=== PATIENT | male | born 1935 | race Caucasian/White ===

== ENCOUNTER 2019-01-26 08:44 | Inpatient (IN) ==
[2019-01-26] MEDS ORDERED: MAGNESIUM SULF RIDER 4 GM in PREMIX 1 EACH IV PRN (09:15)
[2019-01-26] MEDS ORDERED: MAGNESIUM SULF RIDER 2 GM in PREMIX 1 EACH IV PRN (09:15)
[2019-01-26] MEDS ORDERED: SODIUM CHLORIDE 0.45% 1,000 ML IV SCH (09:30)
[2019-01-26 11:50] LABS: Basophils % 0.2 % (0.0-0.8); Eosinophils # 0.2 10*3/uL (0.0-0.87); Eosinophils % 2.2 % (0.00-10.9); Hematocrit 39.2 VOL% (42.0-52.0); Hemoglobin 12.5 GM/DL (14.0-18.0); Immature Granulocytes % 0.3 %; Immature Granulocytes Absolute 0.03 #; Lymphocytes # 1.1 10*3/uL (1.4-4.0); Mean Corpuscular HGB Conc 31.9 GM/DL (32-36); Mean Corpuscular Volume 95.4 FL (87-102); Mean Platelet Volume 10.1 FL (9.6-12.0); Monocytes % 10.1 % (1.7-12.7); Neutrophils % 74.2 % (38.7-73.9); Platelet Count 147 T/CUMM (130-400); Red Blood Count 4.11 MC/CUMM (3.8-5.5); Red Cell Distribution Width 13.3 % (9.3-17.3); White Blood Count 8.7 T/CUMM (4-12)
[2019-01-26] MEDS ORDERED: NITROGLYCERIN SL 0.4 MG TABLET SL PRN (12:05)
[2019-01-26] MEDS ORDERED: CHOLECALCIFEROL 1,000 UNIT TABLET PO SCH (12:15)
[2019-01-26 12:17] LABS: Albumin 3.1 G/DL (3.4-5.0); Bilirubin,Total 0.8 MG/DL (0.2-1.0); Calcium 9.3 MG/DL (8.5-10.1); Osmolality,Calculated 288.7 MOS/KG (273-304); Total Protein 6.7 G/DL (6.4-8.3)
[2019-01-26] MEDS ORDERED: guaiFENesin/DM ER 600-30 MG TABLET PO PRN (12:18)
[2019-01-26] MEDS ORDERED: ONDANSETRON 4 MG/2 ML VIAL IV PRN (12:18)
[2019-01-26] MEDS ORDERED: diphenhydrAMINE CAP 25 MG CAPSULE PO PRN (12:18)
[2019-01-26] MEDS ORDERED: ACETAMINOPHEN 325 MG TABLET PO PRN (12:18)
[2019-01-26] MEDS ORDERED: ZALEPLON 5 MG CAPSULE PO PRN (12:18)
[2019-01-26] MEDS ORDERED: MORPHINE 4 MG/1 ML VIAL IV PRN (12:18)
[2019-01-26] MEDS ORDERED: POTASSIUM CHLORIDE 20 MEQ TABLET PO PRN (12:18)
[2019-01-26 12:20] LABS: Troponin I < 0.015 NG/ML (0.00-0.045)
[2019-01-26] MEDS ORDERED: ALUMINUM/MAGNES/SIMETH MAX STR 30 ML UDCUP PO PRN (12:21)
[2019-01-26] MEDS ORDERED: CLOPIDOGREL 75 MG TABLET PO SCH (12:30)
[2019-01-26] MEDS ORDERED: carvediloL 12.5 MG TABLET PO SCH (12:30)
[2019-01-26] MEDS ORDERED: LEVOFLOXACIN 500 MG TABLET PO SCH (12:30)
[2019-01-26] MEDS ORDERED: ISOSORBIDE MONONITRATE 30 MG TABLET PO SCH (12:30)
[2019-01-26] MEDS ORDERED: ROSUVASTATIN 10 MG TABLET PO SCH (12:30)
[2019-01-26] MEDS ORDERED: FENOFIBRATE 145 MG TABLET PO SCH (12:30)
[2019-01-26] MEDS ORDERED: TAMSULOSIN 0.4 MG CAPSULE PO SCH (12:30)
[2019-01-26] MEDS ORDERED: POTASSIUM CHLORIDE 20 MEQ TABLET PO SCH (12:30)
[2019-01-26] MEDS ORDERED: ALLOPURINOL 100 MG TABLET PO SCH (12:30)
[2019-01-26 13:16] LABS: Troponin I < 0.015 NG/ML (0.00-0.045)
[2019-01-26 14:02] LABS: Apearance,Urine CLEAR (Clear); Bacteria,Urine Occasional /HPF (Few); Bilirubin,Urine Negative (Negative); Blood, Urine Moderate mg/dL (Negative); Glucose,Urine (UA) 50 mg/dL (Negative); Hyaline Casts,Urine 1 /LPF (0-3); Ketones,Urine Negative (Negative); Mucus,Urine Occasional /LPF (Occasional); Nitrite,Urine Negative (Negative); Protein,Urine Negative; RBC,Urine 69 /HPF (0-4); Urine Color Yellow (Yellow); Urine Specific Gravity 1.014 (1.001-1.035); Urine Urobilinogen < 2.0 EU/DL (0.2-1.0); WBC,Urine 7 /HPF (0-6)
[2019-01-26] MEDS: BENZONATATE 100 MG CAPSULE PO PRN ×2 (14:30→21:24)
[2019-01-26 16:44] LABS: Troponin I < 0.015 NG/ML (0.00-0.045)
[2019-01-26] MEDS: INSULIN LISPRO 100 UNIT/ML SUBCUT SCH ×2 (17:25→21:24)
[2019-01-26] MEDS: ASPIRIN EC 81 MG TABLET PO SCH (20:40)
[2019-01-26] MEDS: MULTIVITAMIN (CENTRUM) TABLET PO SCH (20:41)
[2019-01-26] MEDS: OMEGA 3 ACID ETHYL ESTERS 1 GM CAPSULE PO SCH (20:41)
[2019-01-26] MEDS: FLUTICASONE 50 MCG NASAL SPRAY 16 GM BOTTLE BOTH NARES SCH (20:41)
[2019-01-26] MEDS: ENOXAPARIN 40 MG/0.4 ML SYRINGE SUBCUT SCH (21:23)
[2019-01-26] MEDS: carvediloL 6.25 MG TABLET PO SCH (21:24)
[2019-01-26] MEDS: ALLOPURINOL 100 MG TABLET PO SCH (21:24)
[2019-01-27 05:34] LABS: Basophils % 0.2 % (0.0-0.8); Eosinophils # 0.4 10*3/uL (0.0-0.87); Eosinophils % 5.3 % (0.00-10.9); Hematocrit 37.1 VOL% (42.0-52.0); Hemoglobin 11.7 GM/DL (14.0-18.0); Immature Granulocytes % 0.5 %; Immature Granulocytes Absolute 0.03 #; Lymphocytes # 1.2 10*3/uL (1.4-4.0); Lymphocytes % 17.7 % (21.2-54.2); Mean Corpuscular HGB Conc 31.5 GM/DL (32-36); Mean Corpuscular Volume 94.9 FL (87-102); Mean Platelet Volume 10.7 FL (9.6-12.0); Monocytes % 12.5 % (1.7-12.7); Neutrophils % 63.8 % (38.7-73.9); Platelet Count 138 T/CUMM (130-400); Red Blood Count 3.91 MC/CUMM (3.8-5.5); Red Cell Distribution Width 13.4 % (9.3-17.3); White Blood Count 6.6 T/CUMM (4-12)
[2019-01-27 05:53] LABS: Calcium 9.6 MG/DL (8.5-10.1); Osmolality,Calculated 281.1 MOS/KG (273-304)
[2019-01-27] MEDS: LEVOTHYROXINE 100 MCG TABLET PO SCH (06:22)
[2019-01-27] MEDS: BENZONATATE 100 MG CAPSULE PO PRN ×3 (06:22→21:05)
[2019-01-27] MEDS: LEVALBUTEROL 0.63 MG/3 ML NEB RESP TX SCH ×3 (09:17→20:04)
[2019-01-27] MEDS: INSULIN LISPRO 100 UNIT/ML SUBCUT SCH ×4 (09:32→20:51)
[2019-01-27] MEDS: SODIUM CHLORIDE 0.45% 500 ML IV SCH ×2 (09:33→13:36)
[2019-01-27] MEDS: TAMSULOSIN 0.4 MG CAPSULE PO SCH (09:35)
[2019-01-27] MEDS: carvediloL 6.25 MG TABLET PO SCH ×2 (09:35→20:49)
[2019-01-27] MEDS: ISOSORBIDE MONONITRATE 30 MG TABLET PO SCH (09:35)
[2019-01-27] MEDS: POTASSIUM CHLORIDE 20 MEQ TABLET PO SCH (09:35)
[2019-01-27] MEDS: CLOPIDOGREL 75 MG TABLET PO SCH (09:36)
[2019-01-27] MEDS: FENOFIBRATE 145 MG TABLET PO SCH (09:36)
[2019-01-27] MEDS: CHOLECALCIFEROL 1,000 UNIT TABLET PO SCH (09:36)
[2019-01-27] MEDS: ROSUVASTATIN 10 MG TABLET PO SCH (09:37)
[2019-01-27] MEDS: ALLOPURINOL 100 MG TABLET PO SCH ×2 (09:37→20:49)
[2019-01-27] MEDS: ASPIRIN EC 81 MG TABLET PO SCH (09:38)
[2019-01-27] MEDS: OMEGA 3 ACID ETHYL ESTERS 1 GM CAPSULE PO SCH (09:38)
[2019-01-27] MEDS: MULTIVITAMIN (CENTRUM) TABLET PO SCH (09:38)
[2019-01-27] MEDS: FLUTICASONE 50 MCG NASAL SPRAY 16 GM BOTTLE BOTH NARES SCH (09:38)
[2019-01-27] MEDS: AZITHROMYCIN 250 MG TABLET PO SCH (09:48)
[2019-01-27] MEDS: PANTOPRAZOLE 40 MG TABLET PO SCH (09:48)
[2019-01-27] MEDS ORDERED: SODIUM CHLORIDE 0.45% 1,000 ML IV SCH (16:30)
[2019-01-27] MEDS: ENOXAPARIN 40 MG/0.4 ML SYRINGE SUBCUT SCH (20:49)
[2019-01-28] MEDS: LEVALBUTEROL 0.63 MG/3 ML NEB RESP TX SCH ×4 (02:37→18:40)
[2019-01-28 07:53] LABS: Calcium 9.6 MG/DL (8.5-10.1)
[2019-01-28 08:20] LABS: Basophils % 0.3 % (0.0-0.8); Eosinophils # 0.3 10*3/uL (0.0-0.87); Eosinophils % 4.3 % (0.00-10.9); Hematocrit 38.1 VOL% (42.0-52.0); Hemoglobin 12.1 GM/DL (14.0-18.0); Immature Granulocytes % 0.4 %; Immature Granulocytes Absolute 0.03 #; Lymphocytes # 1.1 10*3/uL (1.4-4.0); Lymphocytes % 15.2 % (21.2-54.2); Mean Corpuscular HGB Conc 31.8 GM/DL (32-36); Mean Corpuscular Volume 94.5 FL (87-102); Mean Platelet Volume 9.8 FL (9.6-12.0); Monocytes % 11.5 % (1.7-12.7); Neutrophils % 68.3 % (38.7-73.9); Platelet Count 169 T/CUMM (130-400); Red Blood Count 4.03 MC/CUMM (3.8-5.5); White Blood Count 7.5 T/CUMM (4-12)
[2019-01-28] MEDS: MULTIVITAMIN (CENTRUM) TABLET PO SCH (09:16)
[2019-01-28] MEDS: OMEGA 3 ACID ETHYL ESTERS 1 GM CAPSULE PO SCH (09:16)
[2019-01-28] MEDS: ASPIRIN EC 81 MG TABLET PO SCH (09:16)
[2019-01-28] MEDS: FENOFIBRATE 145 MG TABLET PO SCH (09:17)
[2019-01-28] MEDS: AZITHROMYCIN 250 MG TABLET PO SCH (09:17)
[2019-01-28] MEDS: DOCUSATE SODIUM 100 MG CAPSULE PO PRN (09:17)
[2019-01-28] MEDS: POTASSIUM CHLORIDE 20 MEQ TABLET PO SCH (09:18)
[2019-01-28] MEDS: TAMSULOSIN 0.4 MG CAPSULE PO SCH (09:18)
[2019-01-28] MEDS: ROSUVASTATIN 10 MG TABLET PO SCH (09:18)
[2019-01-28] MEDS: PANTOPRAZOLE 40 MG TABLET PO SCH (09:18)
[2019-01-28] MEDS: carvediloL 6.25 MG TABLET PO SCH ×2 (09:19→21:15)
[2019-01-28] MEDS: ALLOPURINOL 100 MG TABLET PO SCH ×2 (09:19→21:15)
[2019-01-28] MEDS: LEVOTHYROXINE 100 MCG TABLET PO SCH (09:19)
[2019-01-28] MEDS: BENZONATATE 100 MG CAPSULE PO PRN ×2 (09:20→17:36)
[2019-01-28] MEDS: CLOPIDOGREL 75 MG TABLET PO SCH (09:21)
[2019-01-28] MEDS: INSULIN LISPRO 100 UNIT/ML SUBCUT SCH ×4 (09:21→21:14)
[2019-01-28] MEDS: ISOSORBIDE MONONITRATE 30 MG TABLET PO SCH (09:21)
[2019-01-28] MEDS: CHOLECALCIFEROL 1,000 UNIT TABLET PO SCH (11:30)
[2019-01-28] MEDS: FLUTICASONE 50 MCG NASAL SPRAY 16 GM BOTTLE BOTH NARES SCH (11:31)
[2019-01-28] MEDS: guaiFENesin 200 MG/10 ML UDCUP PO PRN (15:00)
[2019-01-28] MEDS: ENOXAPARIN 40 MG/0.4 ML SYRINGE SUBCUT SCH (21:15)
[2019-01-29] MEDS: LEVALBUTEROL 0.63 MG/3 ML NEB RESP TX SCH ×4 (01:38→19:20)
[2019-01-29] MEDS: LEVOTHYROXINE 100 MCG TABLET PO SCH (05:55)
[2019-01-29 06:35] LABS: Basophils % 0.3 % (0.0-0.8); Eosinophils # 0.4 10*3/uL (0.0-0.87); Eosinophils % 5.9 % (0.00-10.9); Hematocrit 34.9 VOL% (42.0-52.0); Hemoglobin 11.3 GM/DL (14.0-18.0); Immature Granulocytes % 0.7 %; Immature Granulocytes Absolute 0.04 #; Lymphocytes % 15.9 % (21.2-54.2); Mean Corpuscular HGB Conc 32.4 GM/DL (32-36); Mean Corpuscular Volume 93.1 FL (87-102); Mean Platelet Volume 10.2 FL (9.6-12.0); Monocytes % 10.9 % (1.7-12.7); Neutrophils % 66.3 % (38.7-73.9); Platelet Count 172 T/CUMM (130-400); Red Blood Count 3.75 MC/CUMM (3.8-5.5); Red Cell Distribution Width 13.1 % (9.3-17.3)
[2019-01-29 06:55] LABS: Calcium 9.2 MG/DL (8.5-10.1); Osmolality,Calculated 277.2 MOS/KG (273-304)
[2019-01-29] MEDS: BENZONATATE 100 MG CAPSULE PO PRN ×2 (07:00→16:42)
[2019-01-29] MEDS: guaiFENesin 200 MG/10 ML UDCUP PO PRN ×2 (07:53→13:33)
[2019-01-29] MEDS: INSULIN LISPRO 100 UNIT/ML SUBCUT SCH ×5 (08:02→22:09)
[2019-01-29] MEDS: ASPIRIN EC 81 MG TABLET PO SCH (09:56)
[2019-01-29] MEDS: carvediloL 6.25 MG TABLET PO SCH ×2 (09:58→22:11)
[2019-01-29] MEDS: FUROSEMIDE 40 MG TABLET PO SCH (09:58)
[2019-01-29] MEDS: MULTIVITAMIN (CENTRUM) TABLET PO SCH (09:59)
[2019-01-29] MEDS: ROSUVASTATIN 10 MG TABLET PO SCH (10:00)
[2019-01-29] MEDS: POTASSIUM CHLORIDE 20 MEQ TABLET PO SCH (10:01)
[2019-01-29] MEDS: OMEGA 3 ACID ETHYL ESTERS 1 GM CAPSULE PO SCH (10:02)
[2019-01-29] MEDS: CHOLECALCIFEROL 1,000 UNIT TABLET PO SCH (10:04)
[2019-01-29] MEDS: TAMSULOSIN 0.4 MG CAPSULE PO SCH (10:04)
[2019-01-29] MEDS: FENOFIBRATE 145 MG TABLET PO SCH (10:05)
[2019-01-29] MEDS: ISOSORBIDE MONONITRATE 30 MG TABLET PO SCH (10:05)
[2019-01-29] MEDS: ALLOPURINOL 100 MG TABLET PO SCH ×2 (10:06→22:11)
[2019-01-29] MEDS: DOCUSATE SODIUM 100 MG CAPSULE PO PRN (10:07)
[2019-01-29] MEDS: CLOPIDOGREL 75 MG TABLET PO SCH (10:08)
[2019-01-29] MEDS: FLUTICASONE 50 MCG NASAL SPRAY 16 GM BOTTLE BOTH NARES SCH (10:08)
[2019-01-29] MEDS: PANTOPRAZOLE 40 MG TABLET PO SCH (10:08)
[2019-01-29] MEDS: AZITHROMYCIN 250 MG TABLET PO SCH (10:08)
[2019-01-29] MEDS: LISINOPRIL 5 MG TABLET PO SCH (10:13)
[2019-01-29] MEDS: ENOXAPARIN 40 MG/0.4 ML SYRINGE SUBCUT SCH (22:11)
[2019-01-30] MEDS: LEVALBUTEROL 0.63 MG/3 ML NEB RESP TX SCH ×4 (01:00→19:42)
[2019-01-30 02:19] LABS: Basophils % 0.2 % (0.0-0.8); Eosinophils # 0.4 10*3/uL (0.0-0.87); Eosinophils % 7.2 % (0.00-10.9); Hematocrit 35.3 VOL% (42.0-52.0); Hemoglobin 11.4 GM/DL (14.0-18.0); Immature Granulocytes % 1.3 %; Immature Granulocytes Absolute 0.07 #; Lymphocytes % 18.2 % (21.2-54.2); Mean Corpuscular HGB Conc 32.3 GM/DL (32-36); Mean Corpuscular Volume 93.6 FL (87-102); Mean Platelet Volume 9.4 FL (9.6-12.0); Neutrophils % 62.1 % (38.7-73.9); Platelet Count 178 T/CUMM (130-400); Red Blood Count 3.77 MC/CUMM (3.8-5.5); Red Cell Distribution Width 13.2 % (9.3-17.3); White Blood Count 5.6 T/CUMM (4-12)
[2019-01-30 02:41] LABS: Calcium 9.5 MG/DL (8.5-10.1)
[2019-01-30] MEDS: BENZONATATE 100 MG CAPSULE PO PRN ×2 (06:25→14:28)
[2019-01-30] MEDS: LEVOTHYROXINE 100 MCG TABLET PO SCH (06:25)
[2019-01-30] MEDS: carvediloL 6.25 MG TABLET PO SCH ×2 (09:18→21:49)
[2019-01-30] MEDS: CLOPIDOGREL 75 MG TABLET PO SCH (09:18)
[2019-01-30] MEDS: POTASSIUM CHLORIDE 20 MEQ TABLET PO SCH (09:19)
[2019-01-30] MEDS: FENOFIBRATE 145 MG TABLET PO SCH (09:19)
[2019-01-30] MEDS: CHOLECALCIFEROL 1,000 UNIT TABLET PO SCH (09:20)
[2019-01-30] MEDS: ISOSORBIDE MONONITRATE 30 MG TABLET PO SCH (09:20)
[2019-01-30] MEDS: ROSUVASTATIN 10 MG TABLET PO SCH (09:20)
[2019-01-30] MEDS: OMEGA 3 ACID ETHYL ESTERS 1 GM CAPSULE PO SCH (09:21)
[2019-01-30] MEDS: TAMSULOSIN 0.4 MG CAPSULE PO SCH (09:21)
[2019-01-30] MEDS: ALLOPURINOL 100 MG TABLET PO SCH ×2 (09:22→21:49)
[2019-01-30] MEDS: FUROSEMIDE 40 MG TABLET PO SCH (09:23)
[2019-01-30] MEDS: ASPIRIN EC 81 MG TABLET PO SCH (09:23)
[2019-01-30] MEDS: LISINOPRIL 5 MG TABLET PO SCH (09:24)
[2019-01-30] MEDS: PANTOPRAZOLE 40 MG TABLET PO SCH (09:24)
[2019-01-30] MEDS: AZITHROMYCIN 250 MG TABLET PO SCH (09:24)
[2019-01-30] MEDS: MULTIVITAMIN (CENTRUM) TABLET PO SCH (09:24)
[2019-01-30] MEDS: FLUTICASONE 50 MCG NASAL SPRAY 16 GM BOTTLE BOTH NARES SCH (10:21)
[2019-01-30] MEDS ORDERED: LACTULOSE 20 GM/30 ML UDCUP PO PRN (11:30)
[2019-01-30] MEDS: INSULIN LISPRO 100 UNIT/ML SUBCUT SCH ×4 (12:32→21:53)
[2019-01-30] MEDS: POLYETHYLENE GLYCOL POWDER 17 GM PACK PO SCH (19:10)
[2019-01-30] MEDS: ENOXAPARIN 40 MG/0.4 ML SYRINGE SUBCUT SCH (21:53)
[2019-01-31] MEDS: LEVALBUTEROL 0.63 MG/3 ML NEB RESP TX SCH ×4 (00:12→18:40)
[2019-01-31] MEDS: BENZONATATE 100 MG CAPSULE PO PRN (00:32)
[2019-01-31] MEDS: LEVOTHYROXINE 100 MCG TABLET PO SCH (06:40)
[2019-01-31] MEDS ORDERED: COSYNTROPIN 0.25 MG VIAL IM ONE (07:47)
[2019-01-31 09:02] LABS: Basophils % 0.6 % (0.0-0.8); Eosinophils # 0.4 10*3/uL (0.0-0.87); Eosinophils % 6.8 % (0.00-10.9); Hematocrit 37.5 VOL% (42.0-52.0); Hemoglobin 12.1 GM/DL (14.0-18.0); Immature Granulocytes % 2.1 %; Immature Granulocytes Absolute 0.13 #; Lymphocytes # 1.3 10*3/uL (1.4-4.0); Lymphocytes % 20.5 % (21.2-54.2); Mean Corpuscular HGB Conc 32.3 GM/DL (32-36); Mean Corpuscular Volume 93.8 FL (87-102); Mean Platelet Volume 9.9 FL (9.6-12.0); Monocytes % 8.9 % (1.7-12.7); Neutrophils % 61.1 % (38.7-73.9); Platelet Count 228 T/CUMM (130-400); Red Cell Distribution Width 13.2 % (9.3-17.3); White Blood Count 6.2 T/CUMM (4-12)
[2019-01-31 09:21] LABS: Calcium 9.7 MG/DL (8.5-10.1)
[2019-01-31] MEDS: ASPIRIN EC 81 MG TABLET PO SCH (09:28)
[2019-01-31] MEDS: INSULIN LISPRO 100 UNIT/ML SUBCUT SCH ×4 (09:28→22:00)
[2019-01-31] MEDS: ISOSORBIDE MONONITRATE 30 MG TABLET PO SCH (09:32)
[2019-01-31] MEDS: POLYETHYLENE GLYCOL POWDER 17 GM PACK PO SCH (09:32)
[2019-01-31] MEDS: POTASSIUM CHLORIDE 20 MEQ TABLET PO SCH (09:32)
[2019-01-31] MEDS: CLOPIDOGREL 75 MG TABLET PO SCH (09:32)
[2019-01-31] MEDS: MULTIVITAMIN (CENTRUM) TABLET PO SCH (09:32)
[2019-01-31] MEDS: FLUTICASONE 50 MCG NASAL SPRAY 16 GM BOTTLE BOTH NARES SCH (09:32)
[2019-01-31] MEDS: PANTOPRAZOLE 40 MG TABLET PO SCH (09:32)
[2019-01-31] MEDS: OMEGA 3 ACID ETHYL ESTERS 1 GM CAPSULE PO SCH (09:32)
[2019-01-31] MEDS: carvediloL 6.25 MG TABLET PO SCH ×2 (09:32→22:00)
[2019-01-31] MEDS: CHOLECALCIFEROL 1,000 UNIT TABLET PO SCH (09:33)
[2019-01-31] MEDS: FENOFIBRATE 145 MG TABLET PO SCH (09:33)
[2019-01-31] MEDS: AZITHROMYCIN 250 MG TABLET PO SCH (09:33)
[2019-01-31] MEDS: ALLOPURINOL 100 MG TABLET PO SCH ×2 (09:33→22:00)
[2019-01-31] MEDS: TAMSULOSIN 0.4 MG CAPSULE PO SCH ×2 (09:57→22:03)
[2019-01-31] MEDS ORDERED: POLYETHYLENE GLYCOL POWDER 17 GM PACK PO PRN (10:45)
[2019-01-31] MEDS ORDERED: SODIUM CHLORIDE 0.9% 1,000 ML IV SCH (11:00)
[2019-01-31] MEDS ORDERED: EXENATIDE SUBCUT SCH (14:00)
[2019-01-31] MEDS ORDERED: TAMSULOSIN 0.4 MG CAPSULE PO SCH (21:00)
[2019-01-31] MEDS ORDERED: ROSUVASTATIN 10 MG TABLET PO SCH (21:00)
[2019-01-31] MEDS: ENOXAPARIN 40 MG/0.4 ML SYRINGE SUBCUT SCH (22:02)
[2019-01-31] MEDS: ROSUVASTATIN 10 MG TABLET PO SCH (22:03)
[2019-02-01] MEDS: BENZONATATE 100 MG CAPSULE PO PRN (00:12)
[2019-02-01] MEDS: LEVALBUTEROL 0.63 MG/3 ML NEB RESP TX SCH ×2 (00:25→08:38)
[2019-02-01] MEDS: LEVOTHYROXINE 100 MCG TABLET PO SCH (06:44)
[2019-02-01] MEDS: MULTIVITAMIN (CENTRUM) TABLET PO SCH (08:28)
[2019-02-01] MEDS: INSULIN LISPRO 100 UNIT/ML SUBCUT SCH ×2 (08:28→12:16)
[2019-02-01] MEDS: ASPIRIN EC 81 MG TABLET PO SCH (08:29)
[2019-02-01] MEDS: AZITHROMYCIN 250 MG TABLET PO SCH (08:29)
[2019-02-01] MEDS: carvediloL 6.25 MG TABLET PO SCH (08:30)
[2019-02-01] MEDS: OMEGA 3 ACID ETHYL ESTERS 1 GM CAPSULE PO SCH (08:30)
[2019-02-01] MEDS: PANTOPRAZOLE 40 MG TABLET PO SCH (08:30)
[2019-02-01] MEDS: FENOFIBRATE 145 MG TABLET PO SCH (08:31)
[2019-02-01] MEDS: ISOSORBIDE MONONITRATE 30 MG TABLET PO SCH (08:31)
[2019-02-01] MEDS: CLOPIDOGREL 75 MG TABLET PO SCH (08:32)
[2019-02-01] MEDS: POTASSIUM CHLORIDE 20 MEQ TABLET PO SCH (08:32)
[2019-02-01] MEDS: CHOLECALCIFEROL 1,000 UNIT TABLET PO SCH (08:32)
[2019-02-01] MEDS: ALLOPURINOL 100 MG TABLET PO SCH (08:33)
[2019-02-01] MEDS: FLUTICASONE 50 MCG NASAL SPRAY 16 GM BOTTLE BOTH NARES SCH (08:34)
[2019-02-01] MEDS ORDERED: SODIUM CHLORIDE 0.9% 500 ML IV SCH (10:00)
[2019-02-01 11:54] VITALS: BP 120/84
[2019-02-01 13:05] LABS: Troponin I < 0.015 NG/ML (0.00-0.045)
== END 2019-02-01 15:18 | disposition home or self-care (01) | DRG 202 ==
LOC: N.CC 10:05 → N.TELEN 01-27 10:57
PROVIDERS: ADMIT Internal Medicine Cardiovascular Disease; ATTEND Internal Medicine Cardiovascular Disease

== ENCOUNTER 2020-02-27 11:19 | Inpatient (IN) ==
[2020-02-27 13:25] LABS: Basophils % 0.4 % (0.0-0.8); Eosinophils # 0.3 10*3/uL (0.0-0.87); Eosinophils % 3.7 % (0.00-10.9); Hematocrit 38.3 VOL% (42.0-52.0); Hemoglobin 12.6 GM/DL (14.0-18.0); Immature Granulocytes % 0.7 %; Immature Granulocytes Absolute 0.05 #; Lymphocytes # 1.3 10*3/uL (1.4-4.0); Lymphocytes % 18.4 % (21.2-54.2); Mean Corpuscular HGB Conc 32.9 GM/DL (32-36); Mean Corpuscular Volume 93.4 FL (87-102); Monocytes % 6.3 % (1.7-12.7); Neutrophils % 70.5 % (38.7-73.9); Platelet Count 185 T/CUMM (130-400); White Blood Count 6.9 T/CUMM (4-12)
[2020-02-27 13:52] LABS: Albumin 3.7 G/DL (3.4-5.0); Bilirubin,Total 0.4 MG/DL (0.2-1.0); Osmolality,Calculated 291.5 MOS/KG (273-304); Total Protein 7.3 G/DL (6.4-8.3)
[2020-02-27] MEDS ORDERED: ACETAMINOPHEN 325 MG TABLET PO PRN (16:17)
[2020-02-27] MEDS ORDERED: GLUCAGON 1 MG VIAL IM PRN (16:17)
[2020-02-27] MEDS ORDERED: ONDANSETRON 4 MG/2 ML VIAL IV PRN (16:17)
[2020-02-27] MEDS ORDERED: DEXTROSE 50% 25 GM/50 ML VIAL IV PRN (16:17)
[2020-02-27] MEDS ORDERED: hydrALAZINE 20 MG/1 ML VIAL IV PRN (16:17)
[2020-02-27] MEDS ORDERED: guaiFENesin/DM ER 600-30 MG TABLET PO PRN (16:17)
[2020-02-27] MEDS ORDERED: PANTOPRAZOLE 40 MG TABLET PO SCH (16:30)
[2020-02-27 18:01] LABS: Hematocrit 39.3 VOL% (42.0-52.0); Hemoglobin 12.6 GM/DL (14.0-18.0)
[2020-02-27] MEDS: INSULIN REGULAR 100 UNIT/ML SUBCUT SCH ×2 (18:03→21:00)
[2020-02-27 18:17] LABS: INR 1.1; PT Patient Result 11.8 SECS (9.8-11.9); Partial Thromboplastin Time 30.5 SECS (23.9-33.8)
[2020-02-27] MEDS: SODIUM CHLORIDE 0.9% 1,000 ML IV SCH (18:32)
[2020-02-27 19:32] LABS: Amorphous Crystals,Urine Occasional /HPF (Few); Bacteria,Urine Occasional /HPF (Few); Bilirubin,Urine Negative (Negative); Blood, Urine Negative (Negative); Glucose,Urine (UA) Negative (Negative); Hyaline Casts,Urine 1 /LPF (0-3); Ketones,Urine Negative (Negative); Mucus,Urine Occasional /LPF (Occasional); Nitrite,Urine Negative (Negative); Protein,Urine Negative; RBC,Urine 7 /HPF (0-4); Squamous Epithelial Cell,Urine Occasional /HPF (0-10); Urine Appearance Slightly Hazy (Clear); Urine Color Yellow (Yellow); Urine Specific Gravity 1.015 (1.001-1.035); Urine Urobilinogen < 2.0 EU/DL (0.2-1.0); WBC,Urine 11 /HPF (0-6)
[2020-02-27] MEDS ORDERED: carvediloL 12.5 MG TABLET PO SCH (21:00)
[2020-02-27] MEDS: TAMSULOSIN 0.4 MG CAPSULE PO SCH (21:00)
[2020-02-27 22:47] LABS: Hematocrit 33.3 VOL% (42.0-52.0); Hemoglobin 10.9 GM/DL (14.0-18.0)
[2020-02-28] MEDS: SODIUM CHLORIDE 0.9% 1,000 ML IV SCH (05:55)
[2020-02-28] MEDS ORDERED: LEVOTHYROXINE 100 MCG TABLET PO SCH (07:00)
[2020-02-28 08:10] LABS: Basophils % 0.7 % (0.0-0.8); Eosinophils # 0.5 10*3/uL (0.0-0.87); Eosinophils % 8.1 % (0.00-10.9); Hematocrit 33.9 VOL% (42.0-52.0); Hemoglobin 11.2 GM/DL (14.0-18.0); Immature Granulocytes % 0.7 %; Immature Granulocytes Absolute 0.04 #; Lymphocytes # 1.4 10*3/uL (1.4-4.0); Lymphocytes % 23.7 % (21.2-54.2); Mean Corpuscular Volume 93.6 FL (87-102); Mean Platelet Volume 10.9 FL (9.6-12.0); Monocytes % 9.3 % (1.7-12.7); Neutrophils % 57.5 % (38.7-73.9); Platelet Count 133 T/CUMM (130-400); Red Blood Count 3.62 MC/CUMM (3.8-5.5); White Blood Count 5.8 T/CUMM (4-12)
[2020-02-28] MEDS: ISOSORBIDE MONONITRATE 30 MG TABLET PO SCH (08:12)
[2020-02-28] MEDS: INSULIN REGULAR 100 UNIT/ML SUBCUT SCH ×4 (08:15→21:45)
[2020-02-28 08:17] LABS: Hypochromasia 1+; Microcytosis 1+
[2020-02-28 08:18] LABS: Platelet Estimate Normal
[2020-02-28 08:37] LABS: Osmolality,Calculated 280.2 MOS/KG (273-304); Thyroid Stimulating Hormone 1.18 uIU/ml (0.358-3.74); VLDL CHOLESTEROL 37.8 MG/DL
[2020-02-28] MEDS ORDERED: DIGOXIN 0.125 MG TABLET PO SCH (09:00)
[2020-02-28] MEDS ORDERED: METOPROLOL SUCCINATE XL 25 MG TABLET PO SCH (09:00)
[2020-02-28] MEDS ORDERED: FENOFIBRATE 145 MG TABLET PO SCH (09:00)
[2020-02-28] MEDS ORDERED: ROSUVASTATIN 10 MG TABLET PO SCH (09:00)
[2020-02-28] MEDS: PANTOPRAZOLE 40 MG TABLET PO SCH (18:06)
[2020-02-28] MEDS: TAMSULOSIN 0.4 MG CAPSULE PO SCH (21:45)
[2020-02-29 05:40] LABS: Basophils % 0.5 % (0.0-0.8); Eosinophils # 0.4 10*3/uL (0.0-0.87); Eosinophils % 7.1 % (0.00-10.9); Hematocrit 31.4 VOL% (42.0-52.0); Hemoglobin 10.3 GM/DL (14.0-18.0); Immature Granulocytes % 0.3 %; Immature Granulocytes Absolute 0.02 #; Lymphocytes # 1.5 10*3/uL (1.4-4.0); Lymphocytes % 24.4 % (21.2-54.2); Mean Corpuscular HGB Conc 32.8 GM/DL (32-36); Mean Corpuscular Volume 94.3 FL (87-102); Mean Platelet Volume 10.2 FL (9.6-12.0); Monocytes % 10.8 % (1.7-12.7); Neutrophils % 56.9 % (38.7-73.9); Platelet Count 152 T/CUMM (130-400); Red Blood Count 3.33 MC/CUMM (3.8-5.5); Red Cell Distribution Width 12.8 % (9.3-17.3); White Blood Count 6.2 T/CUMM (4-12)
[2020-02-29 06:04] LABS: Calcium 9.4 MG/DL (8.5-10.1); Osmolality,Calculated 287.5 MOS/KG (273-304)
[2020-02-29] MEDS: LEVOTHYROXINE 100 MCG TABLET PO SCH (06:15)
[2020-02-29] MEDS: PANTOPRAZOLE 40 MG TABLET PO SCH ×2 (06:15→17:58)
[2020-02-29] MEDS: ASCORBIC ACID 500 MG TABLET PO SCH (08:04)
[2020-02-29] MEDS: MULTIVITAMIN (CENTRUM) TABLET PO SCH (08:06)
[2020-02-29] MEDS: METOPROLOL SUCCINATE XL 25 MG TABLET PO SCH (08:06)
[2020-02-29] MEDS: OMEGA 3 ACID ETHYL ESTERS 1 GM CAPSULE PO SCH (08:06)
[2020-02-29] MEDS: ISOSORBIDE MONONITRATE 30 MG TABLET PO SCH (08:06)
[2020-02-29] MEDS: CHOLECALCIFEROL 1,000 UNIT TABLET PO SCH (08:06)
[2020-02-29] MEDS: DIGOXIN 0.125 MG PO SCH (08:07)
[2020-02-29] MEDS: FENOFIBRATE 145 MG TABLET PO SCH (08:07)
[2020-02-29] MEDS: ROSUVASTATIN 10 MG TABLET PO SCH (08:07)
[2020-02-29] MEDS: INSULIN REGULAR 100 UNIT/ML SUBCUT SCH ×4 (08:09→21:16)
[2020-02-29] MEDS ORDERED: TAMSULOSIN 0.4 MG CAPSULE PO SCH (21:00)
[2020-03-01] MEDS: LEVOTHYROXINE 100 MCG TABLET PO SCH (06:17)
[2020-03-01] MEDS: PANTOPRAZOLE 40 MG TABLET PO SCH (06:17)
[2020-03-01 06:24] LABS: Basophils % 0.6 % (0.0-0.8); Eosinophils # 0.4 10*3/uL (0.0-0.87); Hematocrit 31.8 VOL% (42.0-52.0); Hemoglobin 10.5 GM/DL (14.0-18.0); Immature Granulocytes % 0.6 %; Immature Granulocytes Absolute 0.03 #; Lymphocytes # 1.6 10*3/uL (1.4-4.0); Lymphocytes % 28.9 % (21.2-54.2); Mean Corpuscular Volume 92.7 FL (87-102); Mean Platelet Volume 10.4 FL (9.6-12.0); Neutrophils % 51.9 % (38.7-73.9); Platelet Count 155 T/CUMM (130-400); Red Blood Count 3.43 MC/CUMM (3.8-5.5); White Blood Count 5.4 T/CUMM (4-12)
[2020-03-01 06:56] LABS: Calcium 9.6 MG/DL (8.5-10.1); Osmolality,Calculated 286.5 MOS/KG (273-304)
[2020-03-01] MEDS: METOPROLOL SUCCINATE XL 25 MG TABLET PO SCH (09:20)
[2020-03-01] MEDS: ROSUVASTATIN 10 MG TABLET PO SCH (09:20)
[2020-03-01] MEDS: DIGOXIN 0.125 MG PO SCH (09:20)
[2020-03-01] MEDS: INSULIN REGULAR 100 UNIT/ML SUBCUT SCH ×2 (09:20→12:39)
[2020-03-01] MEDS: ISOSORBIDE MONONITRATE 30 MG TABLET PO SCH (09:20)
[2020-03-01] MEDS: FENOFIBRATE 145 MG TABLET PO SCH (09:20)
[2020-03-01] MEDS: CHOLECALCIFEROL 1,000 UNIT TABLET PO SCH (09:52)
[2020-03-01] MEDS: ASCORBIC ACID 500 MG TABLET PO SCH (09:52)
[2020-03-01] MEDS: OMEGA 3 ACID ETHYL ESTERS 1 GM CAPSULE PO SCH (09:52)
[2020-03-01] MEDS: MULTIVITAMIN (CENTRUM) TABLET PO SCH (09:52)
[2020-03-01 11:41] VITALS: BP 127/76
[2020-03-01] MEDS ORDERED: ASPIRIN EC 81 MG TABLET PO SCH (12:00)
[2020-03-02] MEDS ORDERED: ASPIRIN EC 81 MG TABLET PO SCH (09:00)
== END 2020-03-01 13:44 | disposition home or self-care (01) | DRG 813 ==
LOC: N.ED 11:19 → N.5E 15:50
PROVIDERS: ADMIT Internal Medicine; ATTEND Internal Medicine